=== PATIENT | female | born 1960 | race Hispanic/Latino ===

== ENCOUNTER 2017-11-13 15:20 | Outpatient (CLI) | payer OTHER ==
--- NOTE | 2017-11-13 16:06 | MMO ---
BILATERAL SCREENING MAMMOGRAM: Date: 11/13/17 HISTORY: Screening. COMPARISON: Mammograms from 2017, 2016, 2015, and 2013. TECHNIQUE: Bilateral screening CC and MLO mammograms. This patient's mammogram was interpreted with the assistance of computer-aided detection. FINDINGS: There are scattered fibroglandular densities. No suspicious mass, architectural distortion, or microc alcifications. IMPRESSION: BIRADS 1: Negative Continued annual mammographic screening is recommended. POS: AXEL
== END 2017-11-13 15:21 | disposition home or self-care (01) ==
LOC: SCSMAMMO 15:20
PROVIDERS: ATTEND Obstetrics & Gynecology
DX: Z12.31 Encounter for screening mammogram for malignant neoplasm of breast (principal)
CPT/HCPCS: 77067

== ENCOUNTER 2018-05-21 12:48 | Outpatient (CLI) | payer OTHER ==
--- NOTE | 2018-05-21 14:14 | RAD ---
TWO VIEWS CHEST: DATE: 05/21/2018. PROVIDED CLINICAL HISTORY: Cough. FINDINGS: Comparison is 05/15/2007. Cardiac and mediastinal silhouette is within normal limits. Lungs appear c lear. No pleural fluid or pneumothorax apparent. IMPRESSION: No evidence for an acute cardiopulmonary process. POS: TPC
== END 2018-05-21 12:49 | disposition home or self-care (01) ==
LOC: SCSRAD 12:48
PROVIDERS: ATTEND Internal Medicine
DX: R05 Cough (principal)
CPT/HCPCS: 71046

== ENCOUNTER 2018-06-20 12:38 | Outpatient (CLI) | payer OTHER | END 2018-06-20 12:39 | disposition home or self-care (01) | LOC: ULT 12:38 | PROVIDERS: ATTEND Internal Medicine Interventional Cardiology | DX: E85.4 Organ-limited amyloidosis (principal); L99 Other disorders of skin and subcutaneous tissue in diseases classified elsewhere; I07.1 Rheumatic tricuspid insufficiency | CPT/HCPCS: 93306 ==

== ENCOUNTER 2020-04-13 16:12 | Outpatient (CLI) | payer BC, OTHER ==
--- NOTE | 2020-04-13 22:02 | RAD ---
PA AND LATERAL CHEST: History: Dyspnea. Comparison: 05-21-18 FINDINGS: The lung pereira appear clear. No infiltrate. Heart and mediastinum unremarkable. Vascular markings no rmal. No acute finding. No interval change. IMPRESSION: No acute process identified. POS: AGW
== END 2020-04-13 16:13 | disposition home or self-care (01) ==
LOC: BICRAD 16:12
PROVIDERS: ATTEND Internal Medicine Critical Care Medicine
DX: R06.00 Dyspnea, unspecified (principal)
CPT/HCPCS: 71046